=== PATIENT | female | born 1950 | race Caucasian/White ===

== ENCOUNTER → 2019-08-03 09:09 | Outpatient (REF) | payer OTHER, SELFPAY | LOC: ANHLAB 09:09 | PROVIDERS: PCP Internal Medicine; Visit Provider Nurse Practitioner Family | DX: L72.0 Epidermal cyst (principal) | CPT/HCPCS: 88304 ==

== ENCOUNTER → 2019-10-16 16:37 | Outpatient (REF) | payer OTHER, SELFPAY | LOC: ANHLAB 16:37 | PROVIDERS: PCP Internal Medicine; Visit Provider Surgery Plastic and Reconstructive Surgery | DX: R22.9 Localized swelling, mass and lump, unspecified (principal); L72.0 Epidermal cyst | CPT/HCPCS: 88304; 88305 ==

== ENCOUNTER 2020-02-19 07:27 | Outpatient (CLI) | payer OTHER, SELFPAY ==
[2020-02-19 07:54] LABS: Basophils Percent Auto 0.4 % (0.2-1.2); Eosinophils Absolute Auto 0.1 K/mm3 (0-0.3); Eosinophils Percent Auto 1.1 % (0-4.4); Hematocrit 37.4 % (37.0-47.0); Hemoglobin 12.4 g/dL (12.0-15.0); Immature Granulocyte Absolute 0.02 K/mm3 (0.00-0.031); Immature Granulocyte Percent A 0.3 % (0-0.5); Lymphocytes Absolute Auto 2.15 K/mm3 (0.9-3.2); Lymphocytes Percent Auto 30.8 % (18.3-44.2); Mean Corpuscular HGB Conc 33.2 g/dl (32-36); Mean Corpuscular Volume 93.5 fl (80-100); Mean Platelet Volume 11.8 fl (7.4-10.4); Monocytes Absolute Auto 0.4 K/mm3 (0.1-0.6); Neutrophils Absolute Auto 4.3 K/mm3 (1.3-6.7); Neutrophils Percent Auto 61.4 % (45.5-73.1); Platelet Count Result 147 k/mm3 (150-375); Red Cell Distribution Width 12.9 % (11.5-14.5)
[2020-02-19 08:05] LABS: Alanine Aminotransferase 20 U/L (4-35); Albumin Level 4.1 g/dL (3.5-5.1); Alkaline Phosphatase 30 U/L (38-126); Anion Gap 6 mmol/L (8-16); Aspartate Amino Transferase 23 U/L (14-36); Bilirubin,Total 0.5 mg/dL (0.2-1.3); Blood Urea Nitrogen 10 mg/dL (7-17); Calcium 9.5 mg/dL (8.4-10.2); Carbon Dioxide 29 mmol/L (22-30); Chloride 106 mmol/L (98-107); Cholesterol 128 mg/dL (0-200); Estimated Glomerular Filt Rate > 60; Glucose 109 mg/dL (65-105); HDL Direct 47 mg/dL; Potassium 4.5 mmol/L (3.4-5.0); Sodium 141 mmol/L (137-145); Triglycerides 103 mg/dL (<150)
[2020-02-19 08:16] LABS: LDL Cholesterol Direct 53 mg/dL
[2020-02-19 08:40] LABS: Hemoglobin A1C 6.3 % (<5.7)
[2020-02-19 09:01] LABS: Vitamin D 25 Hydroxy 60.3 ng/mL
[2020-02-19 09:34] LABS: Creatinine Urine 48.9 mg/dL
[2020-02-19 09:47] LABS: MALB Creatinine Ratio < 12.3 mg/g (0-30); Microalbumin Urine Random < 6.0 mg/L (0-16.7)
== END 2020-02-19 07:28 | disposition home or self-care (01) ==
PROVIDERS: PCP Internal Medicine; Visit Provider Internal Medicine
DX: I10 Essential (primary) hypertension (principal); Z79.899 Other long term (current) drug therapy; E11.69 Type 2 diabetes mellitus with other specified complication; E78.5 Hyperlipidemia, unspecified
CPT/HCPCS: 36415; 80053; 80061; 82043; 82306; 83036; 84443; 85025

== ENCOUNTER 2020-07-24 09:25 | Outpatient (CLI) | payer MEDICARE, SELFPAY ==
[2020-07-24 09:56] LABS: Hematocrit 38.3 % (37.0-47.0); Hemoglobin 12.9 g/dL (12.0-15.0); Mean Corpuscular HGB Conc 33.7 g/dl (32-36); Mean Corpuscular Hemoglobin 30.7 pg (26-34); Mean Corpuscular Volume 91.2 fl (80-100); Mean Platelet Volume 11.6 fl (7.4-10.4); Platelet Count Result 168 k/mm3 (150-375); Red Cell Distribution Width 12.7 % (11.5-14.5); White Blood Count 7.4 K/mm3 (4.5-10.0)
[2020-07-24 10:13] LABS: Alanine Aminotransferase 19 U/L (4-35); Albumin Level 4.1 g/dL (3.5-5.1); Alkaline Phosphatase 31 U/L (38-126); Anion Gap 7 mmol/L (8-16); Aspartate Amino Transferase 24 U/L (14-36); Bilirubin,Total 0.5 mg/dL (0.2-1.3); Blood Urea Nitrogen 14 mg/dL (7-17); Calcium 9.2 mg/dL (8.4-10.2); Carbon Dioxide 31 mmol/L (22-30); Chloride 103 mmol/L (98-107); Estimated Glomerular Filt Rate > 60; Glucose 106 mg/dL (65-105); Potassium 4.3 mmol/L (3.4-5.0); Sodium 141 mmol/L (137-145)
[2020-07-24 11:13] LABS: Hemoglobin A1C 6.2 % (<5.7)
[2020-07-24 11:17] LABS: Creatinine Urine 80.1 mg/dL
[2020-07-24 11:22] LABS: MALB Creatinine Ratio < 7.5 mg/g (0-30); Microalbumin Urine Random < 6.0 mg/L (0-16.7)
== END 2020-07-24 09:26 | disposition home or self-care (01) ==
PROVIDERS: Family Provider Internal Medicine; PCP Internal Medicine; Visit Provider Internal Medicine
DX: E11.69 Type 2 diabetes mellitus with other specified complication (principal); E78.5 Hyperlipidemia, unspecified; I10 Essential (primary) hypertension
CPT/HCPCS: 36415; 80053; 82043; 83036; 85027

== ENCOUNTER 2020-09-10 09:54 | Outpatient (CLI) | payer MEDICARE, SELFPAY ==
--- NOTE | ~2020-09-10 | MM_ITS ---
EXAMINATION: MM screening glo BI w [facility] HISTORY: Screening TECHNIQUE: Craniocaudal and mediolateral oblique 3-D tomosynthesis images were obtained and synthetic 2-D images were generated. CAD analysis was submitted and interpreted. COMPARISON: Comparison to multiple prior studies sequentially, with oldest reviewed study dated 01/2015. BREAST PARENCHYMAL COMPOSITION: There are scattered areas of fibroglandular density. FINDINGS: Left breast asymmetries are stable. There is no evidence of suspicious mass, calcification, or architectural distortion to suggest malignancy in either breast. There has been no suspicious int erval change. IMPRESSION: 1. No mammographic evidence of malignancy. 2. Recommend routine screening mammography in one year. BI-RADS Category 2: Benign finding(s). Reviewed, dictated and finalized at location A.
== END 2020-09-10 09:55 | disposition home or self-care (01) ==
LOC: ANHIMG 09:59
PROVIDERS: PCP Internal Medicine; Visit Provider Internal Medicine
DX: Z12.31 Encounter for screening mammogram for malignant neoplasm of breast (principal)
CPT/HCPCS: 77063; 77067

== ENCOUNTER → 2020-10-22 00:51 | Outpatient (CLI) | payer MEDICARE, SELFPAY ==
[2020-10-22 20:46] LABS: SARS-CoV-2 RNA PCR Negative
== END ==
PROVIDERS: PCP Internal Medicine; Visit Provider Podiatrist Foot & Ankle Surgery
DX: Z01.812 Encounter for preprocedural laboratory examination (principal); Z20.822 Contact with and (suspected) exposure to COVID-19
CPT/HCPCS: C9803; U0003; U0005

== ENCOUNTER 2020-10-22 08:02 | Outpatient (CLI) | payer MEDICARE, SELFPAY ==
--- NOTE | 2020-10-22 08:12 | ECG_ITS ---
Measurements Intervals [place] Rate: 72 P: 62 WV: 161 QRS: 22 QRSD: 83 T: 62 QT: 362 QTc: 397 Interpretive Statements SINUS RHYTHM BASELINE ARTIFACT- I, II, III, AVR, AVF, V5 NORMAL ECG Electronically Signed On 10-22-2020 8:22:09 CDT by Alejo Ledesma D.O.
[2020-10-22 08:51] LABS: Anion Gap 7 mmol/L (8-16); Blood Urea Nitrogen 18 mg/dL (7-17); Calcium 9.6 mg/dL (8.4-10.2); Carbon Dioxide 30 mmol/L (22-30); Chloride 105 mmol/L (98-107); Estimated Glomerular Filt Rate 55; Glucose 107 mg/dL (65-105); Potassium 4.2 mmol/L (3.4-5.0); Sodium 142 mmol/L (137-145)
== END 2020-10-22 08:03 | disposition home or self-care (01) ==
LOC: ANHSURGERY 08:07
PROVIDERS: Anesthesiology; PCP Internal Medicine; Visit Provider Podiatrist Foot & Ankle Surgery
DX: Z01.812 Encounter for preprocedural laboratory examination (principal); E11.9 Type 2 diabetes mellitus without complications; I10 Essential (primary) hypertension
CPT/HCPCS: 36415; 80048; 93005

== ENCOUNTER 2020-10-25 01:41 | Day surgery (SDC) | payer MEDICARE, SELFPAY ==
[2020-10-15 15:36] VITALS: BMI 26.2
--- NOTE | 2020-10-24 08:59 | WPDANESEPPF ---
Anes - Initial Pre Proc Eval Procedure: Operation Date: 10/25/20 10:00 Proposed Procedures p Arthrodesis Of The First Metatarsophalangeal Joint Right Foot - Virgil Lackey JR, MD s Tania Shortening Of The Second Metatarsal Osteotomy, Right Hallux - Virgil Lackey JR, MD Date/Time: 10/24/20 08:59 Surgeon: Virgil Lackey JR, MD Pre Op Diagnosis: Bunion right ft,mortons Toe Rt ft, Patient Data Age: 70 Gender: F Height: 1.52 m Weight: 61 kg Allergies Allergy/AdvReac Type Severity Reaction Status Date / Time pseudoephedrine Allergy Unknown Rash Verified 10/15/20 15:30 Home Medications Medication Instructions Recorded Confirmed Type lancets 33 gauge #100 each 11/28/19 08/26/20 History blood sugar diagnostic #100 ea 07/22/20 08/26/20 Rx blood-glucose meter #1 ea 07/22/20 08/26/20 Rx lancets 33 gauge #100 ea 07/22/20 08/26/20 Rx atorvastatin 40 mg PO QAM 10/15/20 10/15/20 History calcium 600 mg PO DAILY 10/15/20 10/15/20 History cholecalciferol (vitamin D3) 50 mcg PO DAILY 10/15/20 10/15/20 History cyanocobalamin (vitamin B-12) 1,000 mcg PO DAILY 10/15/20 10/15/20 History metformin 1,000 mg PO BID 10/15/20 10/15/20 History pantoprazole 40 mg PO QAM 10/15/20 10/15/20 History quinapril 40 mg PO QAM 10/15/20 10/15/20 History Patient hx anesthesia problems: none Family hx anesthesia problems: none PMFSH Past Medical History Medical History (Updated 10/24/20 @ 09:00 by Rojelio Peter MD) Essential hypertension Gastroesophageal reflux disease High cholesterol History of diabetes mellitus, type II History of tumor right breast (radiation) Overweight (BMI 25.0-29.9) Surgical History Surgical History History of tubal ligation Hx of cholecystectomy Hx of LASIK Family History Family History Mother Diabetes mellitus, Onset Age: 89 Hypertension, Onset Age: 89 Family history of diabetes mellitus in first degree relative Sibling Diabetes mellitus Patient's sister is , Onset Age: 62 Patient's sister is in good health Family history of diabetes mellitus in first degree relative Family history of heart disease in male family member before age 55 Father Family history of lung cancer Patient's father is Other Family history of malignant neoplasm of breast in first degree relative Social History Social History Smoking status: Never smoker Alcohol intake: never Substance use: never Living arrangements: alone Spiritual care concerns: No Anes - Eval Final PreProcedure Day of Procedure 10/24/20 08:59 Patient weight: obese Heart: regular rate and rhythm Lungs: clear to auscultation and normal air movement Airway: Mallampati scale class II Neurological: alert and oriented Last oral intake: >/= 8 hours ASA classification: III Emergent: no Anesthetic plan: proceed Anesthesia type and monitoring: general GIVS and LMA Informed Consent: The patient's anesthetic plan and its attendant risks and benefits were discussed with the patient/family/POA. Questions were solicited and answers provided to the satisfaction of the patient/family/POA.
[2020-10-25] VITALS (9 sets, daily range): BP systolic 120–149; BP diastolic 58–69; PULSE 52–82; RESP 15–18; TEMP 36.3–36.5; O2SAT 100
--- NOTE | ~2020-10-25 | XR_ITS ---
EXAMINATION: XR surgery orthopedic EXAM DATE: 10/25/2020 10:55 INDICATION: Right foot arthrodesis. TECHNIQUE: Fluoroscopy used during right foot surgery performed by Dr. Virgil Lackey JR MD. Rad iologist was not present for the imaging or procedure. Total fluoroscopic time of 12 seconds. The D AP for this procedure was 0.86 cGycm2. A total of 2 images sent to PACS from the exam. There is no prior study for comparison. FINDINGS: Frontal and lateral images demonstrates surgical changes from arthrodesis of the right 1st MTP joint with surgical plate dorsally and supporting screws. Probable 1st metatarsal head osteotomy . There are 2 screws in the 2nd metatarsal head, could also be from this surgery given that there may be gas within the 2nd metatarsophalangeal joint, but please correlate with procedure note (I have no avionics mechanic or preoperative images). IMPRESSION: Fluoroscopy used during right foot orthopedic surgery. Reviewed, dictated and finalized at location A.
--- NOTE | 2020-10-25 07:14 | WPDHPUPDATE1 ---
History and Physical Update Update Date/Time: 10/25/20 07:14 History and Physical has been reviewed, including an updated exam of the patient. There are NO changes in the patient's condition. Risks, benefits, and alternatives have been discussed and questions answered. Patient agrees to proceed with procedure.
[2020-10-25] MEDS: LACTATED RINGERS 1,000 ML 30 ML IV CONT ×2 (08:17→11:14)
[2020-10-25 08:33] LABS: Glucose Point of Care 89 (65-105)
[2020-10-25] MEDS: ceFAZolin 2 GM/D5W 50 ML 2 GM/50 ML BAG IVPB (09:54)
--- NOTE | 2020-10-25 12:40 | PM.OP ---
Procedure Note - Brief Procedure Note - Brief Date of procedure: 10/25/20 Pre-op diagnosis: Bunion right ft,mortons Toe Rt ft, Post-op diagnosis: same Procedure performed: 1. Arthrodesis of the first metatarsal phalangeal joint right foot 2. Tania shortening 2nd metatarsal osteotomy right foot Anesthesia: GLMA and local Surgeon: Virgil Lackey JR, DPM Estimated blood loss (mL): 1 Drains: No Packing: No Pathology: none sent Complications: No immediate complications Condition: stable Disposition: same day
[2020-10-25 13:36] LABS: Glucose Point of Care 98 (65-105)
--- NOTE | 2020-10-25 15:10 | PM.PROC ---
Procedure Note - Detailed Date of procedure: 10/25/20 Pre-op diagnosis: Bunion right ft,mortons Toe Rt ft, 1. Bunion deformity right foot with arthritis 2. Mortons toe 2nd digit right foot with metatarsalgia Post-op diagnosis: same Procedure performed: 1. Arthrodesis of the first metatarsal phalangeal joint right foot 2. Tania shortening second metatarsal osteotomy right foot Implants: [employer] cross check plate with 4 2.7mm locking screws and one 3.5mm lag screw [place] 2.0mm cannulated partially threaded screws Anesthesia: GLMA and local Surgeon: Virgil Lackey JR, DPM Estimated blood loss (mL): 1 Drains: No Packing: No Pathology: none sent Complications: No immediate complications Condition: stable Disposition: same day Findings: PROCEDURE IN DETAIL: Under mild sedation, the patient was brought into the operating room, placed on the operating table in supine position. A pneumatic ankle tourniquet was placed about the patient's right ankle. Following general LMA, a local anesthetic block was obtained about the foot and ankle utilizing 20 cc of Exparel. The foot was then scrubbed, prepped, and draped in the usual aseptic manner. An [place] bandage was then used to exsanguinate the patient's foot and the pneumatic ankle tourniquet was then inflated. Surgery began in the following manner: Attention was directed to the dorsal aspect of the 1st metatarsophalangeal joint where there was a large subcutaneous prominence noted along the dorsomedial aspect of the joint. The incision was made starting along the central shaft of the 1st metatarsal and extending just proximal to the interphalangeal joint of the hallux. The incision was continued deep down through the subcutaneous tissues using sharp and blunt dissection. All bleeders were cauterized as necessary. At this point, the dissection was continued down to the level of the periosteum and capsular structures overlying the 1st metatarsophalangeal joint. A full length periosteum and capsular incision was made just medial to the extensor hallucis longus tendon. The periosteum and capsular structures were freed from the base of the proximal phalanx as well as the distal 1st metatarsal. At this point, the 1st metatarsophalangeal joint was identified. There was significant loss of articular cartilage to the head of the 1st metatarsal as well as the base of the proximal phalanx. There was significant broadening and hypertrophy of the 1st metatarsophalangeal joint. Utilizing a sagittal bone saw, the hypertrophied 1st metatarsal was resected dorsally, medially, and laterally. A power bur was used to make sure that there were no rough edges and also to further debride the hypertrophic 1st metatarsal. Next, a rongeur was used to resect all hypertrophic base of the proximal phalanx. At this point, the reamer system for the [employer] system was used to denude the degenerative cartilage from the head of the 1st metatarsal as well as the base of the proximal phalanx. The cartilage and subchondral bone were fully debrided utilizing the reamer system until healthy bleeding bone was noted. Next, a 2-0 drill bit was used to further fenestrate the head of the 1st metatarsal as well as the base of the proximal phalanx in order to allow fusion across the 1st metatarsophalangeal joint. Next, a 0.045 inch K-wire was driven from the medial aspect of the base of the proximal phalanx into the head of the 1st metatarsal in order to serve as temporary fixation. A large steel plate was used to make sure that the hallux was in a rectus position both in the sagittal plane as well as the frontal and transverse plane. Excellent position of the hallux was noted. Next, a CrossCHECK plate was placed atop the 1st metatarsophalangeal joint held in position with [place] wires. Utilizing standard principles and techniques, the 2 distal drill holes were drilled and two 2.7mm mm fully-threaded locking
== END 2020-10-25 13:28 | disposition home or self-care (01) ==
PROVIDERS: PCP Internal Medicine; Visit Provider Podiatrist Foot & Ankle Surgery
PROC: (CPT 28750; principal; 2020-10-25 10:00)
DX: M21.611 Bunion of right foot (principal); M19.071 Primary osteoarthritis, right ankle and foot; G57.61 Lesion of plantar nerve, right lower limb; E11.9 Type 2 diabetes mellitus without complications; Z79.84 Long term (current) use of oral hypoglycemic drugs; E78.00 Pure hypercholesterolemia, unspecified; K21.9 Gastro-esophageal reflux disease without esophagitis; E66.3 Overweight; Z68.25 Body mass index [BMI] 25.0-25.9, adult; Z85.3 Personal history of malignant neoplasm of breast
CPT/HCPCS: 28750; 28308; 36415; 80048; 82948; 93005; C1713; C9290; C9803; J0690; J1100; J2250; J2405; J2704; J3010; J7120; U0003; U0005

== ENCOUNTER → 2020-12-24 10:16 | Outpatient (REF) | payer MEDICARE, SELFPAY | LOC: ANHLAB 10:16 | PROVIDERS: PCP Internal Medicine; Visit Provider Nurse Practitioner | DX: R22.9 Localized swelling, mass and lump, unspecified (principal) | CPT/HCPCS: 88304 ==

== ENCOUNTER 2021-02-26 06:47 | Outpatient (CLI) | payer MEDICARE, SELFPAY ==
[2021-02-26 07:41] LABS: Add Urine Microscopic? NO; Appearance Urine Clear (Clear); Bilirubin Urine Negative (Negative); Blood Urine Negative (Negative); Color Urine Straw (Yellow); Glucose Urine UA Negative (Negative); Ketones Urine Negative (Negative); Leukocyte Esterase Ur Negative LEU/UL (NEGATIVE); Nitrate Urine Negative (Negative); Protein Urine Negative (Negative); Specific Grav Ur 1.009 (1.001-1.035); Urobilinogen Urine Negative mg/dL (<2.0)
[2021-02-26 07:43] LABS: Hematocrit 38.4 % (37.0-47.0); Hemoglobin 12.5 g/dL (12.0-15.0); Mean Corpuscular HGB Conc 32.6 g/dl (32-36); Mean Corpuscular Hemoglobin 30.8 pg (26-34); Mean Corpuscular Volume 94.6 fl (80-100); Mean Platelet Volume 11.6 fl (7.4-10.4); Platelet Count Result 159 k/mm3 (150-375); Red Blood Count 4.06 M/mm3 (4.2-5.4); Red Cell Distribution Width 12.9 % (11.5-14.5); White Blood Count 6.6 K/mm3 (4.5-10.0)
[2021-02-26 07:58] LABS: Alanine Aminotransferase 17 U/L (4-35); Albumin Level 4.2 g/dL (3.5-5.1); Alkaline Phosphatase 35 U/L (38-126); Anion Gap 12 mmol/L (8-16); Aspartate Amino Transferase 24 U/L (14-36); Bilirubin,Total 0.4 mg/dL (0.2-1.3); Blood Urea Nitrogen 13 mg/dL (7-17); Calcium 9.4 mg/dL (8.4-10.2); Carbon Dioxide 27 mmol/L (22-30); Chloride 102 mmol/L (98-107); Cholesterol 134 mg/dL (0-200); Estimated Glomerular Filt Rate > 60; Glucose 111 mg/dL (65-110); HDL Direct 61 mg/dL; Potassium 4.4 mmol/L (3.4-5.0); Sodium 141 mmol/L (137-145); Triglycerides 66 mg/dL (<150)
[2021-02-26 08:09] LABS: LDL Cholesterol Direct 52 mg/dL
[2021-02-26 08:12] LABS: Creatinine Urine 58.1 mg/dL
[2021-02-26 09:18] LABS: MALB Creatinine Ratio < 10.3 mg/g (0-30); Microalbumin Urine Random < 6.0 mg/L (0-16.7)
[2021-02-26 11:54] LABS: Vitamin D 25 Hydroxy 55.5 ng/mL
== END 2021-02-26 06:48 | disposition home or self-care (01) ==
PROVIDERS: PCP Internal Medicine; Visit Provider Internal Medicine
DX: E11.69 Type 2 diabetes mellitus with other specified complication (principal); E78.5 Hyperlipidemia, unspecified; M85.89 Other specified disorders of bone density and structure, multiple sites; I10 Essential (primary) hypertension; E78.2 Mixed hyperlipidemia
CPT/HCPCS: 36415; 80053; 80061; 81003; 82043; 82306; 83036; 84443; 85025

== ENCOUNTER 2021-09-16 07:45 | Outpatient (CLI) | payer MEDICARE, SELFPAY ==
[2021-09-16 08:26] LABS: Alanine Aminotransferase 23 U/L (4-35); Albumin Level 4.2 g/dL (3.5-5.1); Alkaline Phosphatase 39 U/L (38-126); Anion Gap 3 mmol/L (8-16); Aspartate Amino Transferase 28 U/L (14-36); Bilirubin,Total 0.6 mg/dL (0.2-1.3); Blood Urea Nitrogen 19 mg/dL (7-17); Calcium 9.2 mg/dL (8.4-10.2); Carbon Dioxide 29 mmol/L (22-30); Chloride 107 mmol/L (98-107); Estimated Glomerular Filt Rate > 60; Glucose 104 mg/dL (65-110); Potassium 4.2 mmol/L (3.4-5.0); Sodium 139 mmol/L (137-145)
[2021-09-16 08:31] LABS: Hemoglobin A1C 5.8 % (<5.7)
[2021-09-16 08:43] LABS: Creatinine Urine 119.9 mg/dL
[2021-09-16 08:48] LABS: MALB Creatinine Ratio 6.2 mg/g (0-30); Microalbumin Urine Random 7.4 mg/L (0-16.7)
== END 2021-09-16 07:46 | disposition home or self-care (01) ==
LOC: ANHLAB 07:46
PROVIDERS: PCP Internal Medicine; Visit Provider Internal Medicine
DX: E11.9 Type 2 diabetes mellitus without complications (principal)
CPT/HCPCS: 36415; 80053; 82043; 83036

== ENCOUNTER 2021-09-23 15:34 | Outpatient (CLI) | payer MEDICARE, SELFPAY ==
--- NOTE | ~2021-09-23 | MM_ITS ---
EXAMINATION: MM screening [facility] BI w [facility] HISTORY: Screening mammogram, family history of breast cancer in her sister. TECHNIQUE: Craniocaudal and mediolateral oblique 3-D tomosynthesis images were obtained and synthetic 2-D images were generated. CAD analysis was submitted and interpreted. COMPARISON: 09/10/2020, 05/29/2019, 05/26/2018 BREAST PARENCHYMAL COMPOSITION: There are scattered areas of fibroglandular density. FINDINGS: There is no suspicious mass, calcification, or architectural distortion to suggest malignan cy in either breast. There has been no suspicious interval change. IMPRESSION: 1. No mammographic evidence of malignancy. 2. Recommend routine screening mammography in one year. BI-RADS Category 1: Negative Reviewed, dictated and finalized at location A.
== END 2021-09-23 15:35 | disposition home or self-care (01) ==
LOC: ANHIMG 15:35
PROVIDERS: PCP Internal Medicine; Visit Provider Internal Medicine
DX: Z12.31 Encounter for screening mammogram for malignant neoplasm of breast (principal)
CPT/HCPCS: 77063; 77067

== ENCOUNTER 2021-09-24 07:25 | Outpatient (CLI) | payer MEDICARE, SELFPAY ==
--- NOTE | ~2021-09-24 | DEXA_ITS ---
Bone Density Report Name: TAWANA SHARMA Age: 71 Sex: Female Ethnicity: White Date of : 1950 Indication: postmenopausal; height loss; cancer; Referring Provider: WILLIAM ESCAMILLA Study: Bone densitometry was performed. Exam Date: September 24, 2021 Accession number: [id number] Bone Density: Region BMD T-score Z-score Classification AP Spine (L1, L3) 1.018 0.0 2.3 Normal Femoral Neck (Left) 0.656 -1.7 0.3 Osteopenia Total Hip (Left) 0.806 -1.1 0.6 Osteopenia Total Hip Bilateral Avg 0.805 -1.1 0.6 Osteopenia Femoral Neck (Right) 0.666 -1.6 0.4 Osteopenia Total Hip (Right) 0.803 -1.1 0.6 Osteopenia World Health Organization criteria for BMD impression classify patients as: Normal (T-score at or above -1.0), Osteopenia (T-score between -1.0 and -2.5), or Osteoporosis (T-score at or below -2.5). 10-year Fracture Risk(1): Major Osteoporotic Fracture 12% Hip Fracture 2.4% Reported Risk Factors: [place] (), Neck BMD=0.656, BMI=24.8 (1) FRAX(R) Version 3.08. Fracture probability calculated for an untreated patient. Fracture probability may be lower if the patient has received treatment. Previous Exams: Region Exam Age BMD T-score BMD Change BMD Change Date g/cm2 vs Baseline vs Previous AP Spine(L1, L3) 09/24/2021 71 1.018 0.0 -0.048(-4.5%)# 0.054(5.6%)* 10/07/2018 68 0.964 -0.4 -0.101(-9.5%)# -0.022(-2.3%) 05/19/2016 66 0.987 -0.2 -0.079(-7.4%)# 0.034(3.6%)# 12/28/2011 61 0.953 -0.5 -0.113(-10.6%) -0.075(-7.3%)# 05/07/2005 55 1.028 0.1 -0.038(-3.6%)* -0.038(-3.6%)* 04/24/2004 54 1.066 0.5 Total Hip(Left) 09/24/2021 71 0.806 -1.1 -0.132(-14.0%) -0.036(-4.2%)* 10/07/2018 68 0.841 -0.8 -0.096(-10.3%) -0.043(-4.9%)* 05/19/2016 66 0.884 -0.5 -0.053(-5.6%)# -0.042(-4.5%)# 12/28/2011 61 0.926 -0.1 -0.011(-1.2%)# 0.024(2.7%)# 05/07/2005 55 0.902 -0.3 -0.036(-3.8%)* -0.036(-3.8%)* 04/24/2004 54 0.937 0.0 Total Hip(Right) 09/24/2021 71 0.803 -1.1 -0.164(-16.9%) -0.057(-6.6%)* 10/07/2018 68 0.860 -0.7 -0.106(-11.0%) 0.009(1.0%) 05/19/2016 66 0.851 -0.7 -0.115(-11.9%) -0.067(-7.3%)# 12/28/2011 61 0.918 -0.2 -0.048(-5.0%)# 0.032(3.6%)# 05/07/2005 55 0.886 -0.5 -0.080(-8.3%)* -0.080(-8.3%)* 04/24/2004 54 0.966 0.2 *Denotes significance at 95% confidence level, LSC for AP Spine = 0.022 g/cm2, LSC for Total Hip = 0.027 g/cm2 Clinical Information Provided by Patient: Has use
== END 2021-09-24 07:26 | disposition home or self-care (01) ==
PROVIDERS: PCP Internal Medicine; Visit Provider Internal Medicine
DX: Z78.0 Asymptomatic menopausal state (principal); M85.852 Other specified disorders of bone density and structure, left thigh; M85.851 Other specified disorders of bone density and structure, right thigh
CPT/HCPCS: 77080

== ENCOUNTER 2022-03-25 07:25 | Outpatient (CLI) | payer MEDICARE, SELFPAY ==
[2022-03-25 07:53] LABS: Alanine Aminotransferase 19 U/L (6-35); Albumin Level 4.3 g/dL (3.5-5.1); Alkaline Phosphatase 32 U/L (38-126); Anion Gap 13 mmol/L (8-16); Aspartate Amino Transferase 23 U/L (14-36); Bilirubin,Total 0.5 mg/dL (0.2-1.3); Blood Urea Nitrogen 15 mg/dL (7-17); Calcium 9.6 mg/dL (8.4-10.2); Carbon Dioxide 29 mmol/L (22-30); Chloride 104 mmol/L (98-107); Cholesterol 135 mg/dL (0-200); Estimated Glomerular Filt Rate 49; Glucose 104 mg/dL (65-110); HDL Direct 56 mg/dL; Sodium 146 mmol/L (137-145); Triglycerides 61 mg/dL (<150)
[2022-03-25 07:59] LABS: LDL Cholesterol Direct 48 mg/dL
[2022-03-25 09:46] LABS: Vitamin D 25 Hydroxy 72.2 ng/mL
[2022-03-25 13:31] LABS: Hemoglobin A1C 5.8 % (<5.7)
== END 2022-03-25 07:26 | disposition home or self-care (01) ==
PROVIDERS: PCP Internal Medicine; Visit Provider Nurse Practitioner
DX: E78.5 Hyperlipidemia, unspecified (principal); E55.9 Vitamin D deficiency, unspecified; E11.9 Type 2 diabetes mellitus without complications
CPT/HCPCS: 36415; 80053; 80061; 82306; 83036

== ENCOUNTER 2022-10-01 07:18 | Outpatient (CLI) | payer MEDICARE, SELFPAY ==
[2022-10-01 08:00] LABS: Hemoglobin A1C 5.7 % (<5.7)
[2022-10-01 08:01] LABS: Alanine Aminotransferase 20 U/L (6-35); Albumin Level 4.3 g/dL (3.5-5.1); Alkaline Phosphatase 39 U/L (38-126); Anion Gap 5 mmol/L (8-16); Aspartate Amino Transferase 25 U/L (14-36); Bilirubin,Total 0.8 mg/dL (0.2-1.3); Blood Urea Nitrogen 16 mg/dL (7-17); Calcium 9.6 mg/dL (8.4-10.2); Carbon Dioxide 30 mmol/L (22-30); Chloride 105 mmol/L (98-107); Cholesterol 141 mg/dL (0-200); Estimated Glomerular Filt Rate 54; Glucose 89 mg/dL (65-110); HDL Direct 61 mg/dL; Potassium 4.4 mmol/L (3.4-5.0); Sodium 140 mmol/L (137-145); Triglycerides 72 mg/dL (<150)
[2022-10-01 08:11] LABS: LDL Cholesterol Direct 54 mg/dL
== END 2022-10-01 07:19 | disposition home or self-care (01) ==
LOC: ANHLAB 07:20
PROVIDERS: PCP Internal Medicine; Visit Provider Nurse Practitioner
DX: E78.5 Hyperlipidemia, unspecified (principal); E11.9 Type 2 diabetes mellitus without complications
CPT/HCPCS: 36415; 80053; 80061; 83036

== ENCOUNTER 2022-11-07 10:02 | Outpatient (CLI) | payer MEDICARE, SELFPAY ==
--- NOTE | ~2022-11-07 | MM_ITS ---
EXAMINATION: MM screening glo BI w [facility] HISTORY: Screening mammogram, family history of breast cancer in her sister. TECHNIQUE: Craniocaudal and mediolateral oblique 3-D tomosynthesis images were obtained and synthetic 2-D images were generated. CAD analysis was submitted and interpreted. COMPARISON: 09/23/2021, 09/10/2020, 05/29/2019 BREAST PARENCHYMAL COMPOSITION: There are scattered areas of fibroglandular density. FINDINGS: No suspicious mass, calcification, or architectural distortion are identified in either amrik ast to suggest malignancy. There has been no suspicious interval change. IMPRESSION: 1. No mammographic evidence of malignancy. 2. Recommend routine screening mammography in one year. BI-RADS Category 1: Negative Reviewed, dictated and finalized at location A.
== END 2022-11-07 10:03 | disposition home or self-care (01) ==
LOC: ANHIMG 10:06
PROVIDERS: PCP Family Medicine; Visit Provider Family Medicine
DX: Z12.31 Encounter for screening mammogram for malignant neoplasm of breast (principal)
CPT/HCPCS: 77063; 77067